=== PATIENT | female | born 1960 | race Caucasian/White ===

== ENCOUNTER 2018-09-24 15:54 | Emergency (ER) | payer OTHER ==
[~2018-09-24] VITALS: Ht 149.9 cm; Wt 68.0 kg
--- NOTE | 2018-09-24 17:41 | ED.ADGEN ---
Past History Past Medical History: Diabetes, Hypertension Alcohol Use: None Drug Use: None Adult General Chief Complaint Chief Complaint cough, congestion, sore throat HPI HPI Patient is a 58-year-old female presents to nasal congestion, rhinorrhea, sore throat, productive cough with yellow-green sputum started 2 days ago. Patient also reports multiple sick family members. Her was seen in the emergency department earlier today and treated for the same. Patient denies fever chills, nausea vomiting, sweats. No chest pain chest tightness, shortness of breath. Patient denies history of asthma, COPD or chronic lung disease. No medications or therapy's taken prior to ED arrival. Patient is a nonsmoker. Review of Systems Review of Systems Review symptoms as per history of present illness. All other review symptoms are negative. All other systems were reviewed and found to be within normal limits, except as documented in this note. Physical Exam Physical Exam Constitutional: Well developed, well nourished, no acute distress, non-toxic appearance. [] HENT: Normocephalic, atraumatic, bilateral external ears normal, oropharynx moist, no oral exudates, nose normal. [] Eyes: PERRLA, EOMI, conjunctiva normal, no discharge. [] Neck: Normal range of motion, no tenderness, supple, no stridor. [] Cardiovascular:Heart rate regular rhythm, no murmur [] Lungs & Thorax: Bilateral breath sounds clear to auscultation [] Abdomen: Bowel sounds normal, soft, no tenderness, no masses, no pulsatile masses. [] Skin: Warm, dry, no erythema, no rash. [] Back: No tenderness. [] Extremities: No tenderness. [] Neurologic: Alert and oriented X 3, normal motor function, normal sensory function, no focal deficits noted. [] Psychologic: Affect normal, judgement normal, mood normal. [] Current Patient Data Vital Signs Vital Signs Date Time Temp Pulse Resp B/P (MAP) Pulse Ox O2 Delivery O2 Flow Rate FiO2 09/24/18 16:08 98.4 67 16 99 Room Air EKG EKG [] Radiology/Procedures Radiology/Procedures [] Course & Med Decision Making Course & Med Decision Making Pertinent Labs and Imaging studies reviewed. (See chart for details) [Acute bronchitis without respiratory compromise. Recommend supportive care with PCP follow-up. Return precautions reviewed.] Final Impression Final Impression [1. Acute bronchitis] Danya Disclaimer Dragon Disclaimer This electronic medical record was generated, in whole or in part, using a voice recognition dictation system. EDGARDO GONZÁLES DO Sep 24, 2018 17:41
[2018-09-24] MEDS ORDERED: GUAI12003 PO (18:24)
[2018-09-24] MEDS ORDERED: CEPH-264 PO (18:24)
[2018-09-24 18:40] VITALS: BP 134/98
== END 2018-09-24 18:41 | disposition home or self-care (01) ==
LOC: ER 15:54
DX: J20.9 Acute bronchitis, unspecified (principal); E11.9 Type 2 diabetes mellitus without complications; I10 Essential (primary) hypertension
CPT/HCPCS: 99283